=== PATIENT | female | born 1980 | race Caucasian/White ===

== ENCOUNTER 2016-12-09 06:00 | Inpatient (IN) | payer OTHER ==
[~2016-12-09] VITALS: Ht 170.2 cm; Wt 97.5 kg
[~2016-12-09 06:00] MED LIST: COLACE 100MG C100 MG PO; PHENERGAN 25 MG25 M1 PO; ZOFRAN8 MG PO
[2016-12-09 07:05] LABS: HEMOGLOBIN 10.4 gm/dl (12.3-15.3); RED BLOOD COUNT 3.83 M/UL (4.00-5.10); WHITE BLOOD COUNT 9.2 K/UL (4.5-11.0)
[2016-12-10 03:42] LABS: HEMOGLOBIN 9.3 gm/dl (12.3-15.3)
== END 2016-12-10 17:04 | disposition home or self-care (01) | DRG 774 ==
LOC: OB 06:00
PROVIDERS: ADMIT Obstetrics & Gynecology
PROC: 10E0XZZ Delivery of Products of Conception, External Approach (ICD-10-PCS; principal; 2016-12-09)
PROC: 10907ZC Drainage of Amniotic Fluid, Therapeutic from Products of Conception, Via Natural or Artificial Opening (ICD-10-PCS; principal; 2016-12-09)
PROC: 3E033VJ Introduction of Other Hormone into Peripheral Vein, Percutaneous Approach (ICD-10-PCS; principal; 2016-12-09)
PROC: 3E0R3GC Introduction of Other Therapeutic Substance into Spinal Canal, Percutaneous Approach (ICD-10-PCS; 2016-12-10)
PROC: 3E0234Z Introduction of Serum, Toxoid and Vaccine into Muscle, Percutaneous Approach (ICD-10-PCS; 2016-12-10)
DX: O48.0 Post-term pregnancy (principal); O74.5 Spinal and epidural anesthesia-induced headache during labor and delivery; O36.0930 Maternal care for other rhesus isoimmunization, third trimester, not applicable or unspecified; Z3A.40 40 weeks gestation of pregnancy; Z37.0 Single live birth; G43.909 Migraine, unspecified, not intractable, without status migrainosus; Z23 Encounter for immunization; Z82.49 Family history of ischemic heart disease and other diseases of the circulatory system; Z82.5 Family history of asthma and other chronic lower respiratory diseases; Z80.9 Family history of malignant neoplasm, unspecified
CPT/HCPCS: 36415; 36600; 81001; 82800; 85014; 85018; 85025; 85461; 86850; 86900; 86901; 90715; J2405; J2590; J2790; J2795; J3010; J7120

== ENCOUNTER 2016-12-12 14:32 | Emergency (ER) | payer OTHER | END 2016-12-12 19:10 | disposition home or self-care (01) | LOC: ER1 14:32 | DX: O89.4 Spinal and epidural anesthesia-induced headache during the puerperium (principal) | CPT/HCPCS: 70450; 96374; 96375; 99284; J1200; J1885; J7030 ==

== ENCOUNTER 2021-04-28 17:30 | Emergency (ER) | payer OTHER ==
[2021-04-28 18:46] LABS: HEMOGLOBIN 14.7 gm/dl (12.3-15.3); RED BLOOD COUNT 4.8 M/UL (4.00-5.10); WHITE BLOOD COUNT 9.5 K/UL (4.5-11.0)
[2021-04-28 19:10] LABS: BUN/CREATININE RATIO 11 (0-10)
[2021-04-28 19:11] LABS: BORDETELLA PARAPERTUSSIS Not Detected (Not Detectd); BORDETELLA PERTUSSIS Not Detected (Not Detectd); CHLAMYDIA PNEUMONIAE Not Detected (Not Detectd); CORONAVIRUS HKU1 Not Detected (Not Detectd); CORONAVIRUS NL63 Not Detected (Not Detectd); CORONAVIRUS OC43 Not Detected (Not Detectd); CORONOAVIRUS 229E Not Detected (Not Detectd); HUMAN METAPNEUMOVIRUS Not Detected (Not Detectd); HUMAN RHINOVIRUS/ENTEROVIRUS Not Detected (Not Detectd); INFLUENZA A Not Detected (Not Detectd); INFLUENZA B Not Detected (Not Detectd); MYCOPLASMA PNEUMONIAE Not Detected (Not Detectd); PARAINFLUENZA VIRUS 1 Not Detected (Not Detectd); PARAINFLUENZA VIRUS 2 Not Detected (Not Detectd); PARAINFLUENZA VIRUS 3 Not Detected (Not Detectd); PARAINFLUENZA VIRUS 4 Not Detected (Not Detectd)
[2021-04-28 20:10] LABS: SARS-CoV-2 NOT DETECTED (Not Detectd)
[2021-04-28 20:11] LABS: RESPIRATORY SYNCYTIAL VIRUS DETECTED (Not Detectd)
[2021-04-28] MEDS ORDERED: CYCLOBENZAPRINE10 MG PO (20:28)
[2021-04-28] MEDS ORDERED: IMITREX50 MG PO (20:28)
== END 2021-04-28 20:49 | disposition home or self-care (01) ==
LOC: ER1 17:30
PROVIDERS: Physician Assistant
DX: R51.9 Headache, unspecified (principal); Z20.822 Contact with and (suspected) exposure to COVID-19
CPT/HCPCS: 80048; 81001; 85025; 87081; 87086; 87633; 87880; 96374; 96375; 99284; J1200; J1885; J2765; J3360

== ENCOUNTER → 2021-08-02 | Outpatient (CLI) | payer BC, OTHER ==
[~2021-08-02] MED LIST changes: +CYCLOBENZAPRINE10 MG PO; +IMITREX50 MG PO
== END ==
LOC: MRI 11:00
DX: G43.009 Migraine without aura, not intractable, without status migrainosus (principal)
CPT/HCPCS: 70553; A9577